=== PATIENT | male | born 1960 | race Caucasian/White ===

== ENCOUNTER 2024-09-22 13:45 | Emergency (ER) | payer SELFPAY ==
[~2024-09-22] VITALS: Ht 165.1 cm; Wt 64.4 kg
[2024-09-22 13:55] VITALS: RESP 16; O2SAT 100
[2024-09-22] MEDS ORDERED: IBUP-2030 MT (14:59)
[2024-09-22] MEDS ORDERED: ACYC200C31 MT (14:59)
[2024-09-22] MEDS ORDERED: LIDO700A15 TP (14:59)
[2024-09-22 15:26] VITALS: BP 160/88; PULSE 85; TEMP 36.9; O2SAT 99
== END 2024-09-22 15:31 | disposition home or self-care (01) ==
LOC: ER 13:45
DX: B02.9 Zoster without complications (principal)
CPT/HCPCS: 99283

== ENCOUNTER 2024-09-29 10:42 | Emergency (ER) | payer SELFPAY ==
[~2024-09-29] VITALS: Ht 165.1 cm; Wt 63.5 kg
[~2024-09-29 10:42] MED LIST: ACYC200C31 MT; IBUP-2030 MT; LIDO700A15 TP
[2024-09-29 10:47] VITALS: BP 131/80; TEMP 36.7; O2SAT 100
[2024-09-29 10:48] VITALS: PULSE 78; RESP 16; O2SAT 98
[2024-09-29] MEDS ORDERED: GABA-529 MT (11:50)
[2024-09-29 12:00] LABS: CLARITY URINE CLEAR (CLEAR); COLOR URINE DARK YELLOW (YELLOW); GLUCOSE URINE NEGATIVE (NEGATIVE); KETONES URINE TRACE (NEGATIVE); LEUKOCYTE ESTERASE URINE 1+ (NEGATIVE); NITRITE URINE NEGATIVE (NEGATIVE); OCCULT BLOOD URINE 3+ (NEGATIVE); PH URINE 5.5 (4.5-8.0); PROTEIN URINE 1+ (NEGATIVE); SPECIFIC GRAVITY URINE 1.022 (1.005-1.030)
[2024-09-29 12:15] LABS: MUCUS URINE TRACE /lpf (NONE/TRACE)
[2024-09-29 12:16] LABS: SQUAMOUS EPITHELIAL CELL URINE RARE /lpf (RARE/1+)
[2024-09-29 12:17] LABS: BACTERIA URINE TRACE; RBC URINE TNTC /hpf (0-2)
[2024-09-29 12:44] LABS: CALCIUM 9.7 mg/dL (8.7-10.4); CARBON DIOXIDE 27 mEq/L (21-32); CHLORIDE 102 mEq/L (98-107); POTASSIUM 3.7 mEq/L (3.5-5.1); SODIUM 134 mEq/L (136-145)
[2024-09-29 12:45] LABS: BASOPHILS % 0.8 % (0.0-2.0); EOSINOPHILS % 1.4 % (0.0-5.0); HEMATOCRIT. 35.1 % (42.0-52.0); HEMOGLOBIN. 11.9 g/dL (14.0-18.0); LYMPHOCYTES % 26.7 % (20.0-50.0); MEAN CORPUSCULAR HEMOGLOBIN 33.2 pg (28.0-32.0); MEAN CORPUSCULAR VOLUME 97.7 fL (80.0-94.0); MONOCYTES % 11.7 % (2.0-8.0); NEUTROPHILS % 59.4 % (40.0-76.0); PLATELET 419 x1000/uL (130-400); RED BLOOD CELL COUNT 3.59 mill/uL (4.7-6.1); WHITE BLOOD COUNT 8.9 x1000/uL (4.5-11.0)
[2024-09-29 12:50] LABS: CREATININE 0.7 mg/dL (0.6-1.3); GLUCOSE 87 mg/dL (70-105); UREA NITROGEN BLOOD 6 mg/dL (9-23)
== END 2024-09-29 12:00 | disposition home or self-care (01) ==
LOC: ER 10:42
DX: B02.9 Zoster without complications (principal); G62.9 Polyneuropathy, unspecified; Z79.899 Other long term (current) drug therapy
CPT/HCPCS: 36415; 80048; 81003; 85025; 99283